=== PATIENT | female | born 2000 | race Caucasian/White ===

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

== ENCOUNTER 2023-12-18 07:34 | Day surgery (SDC) | payer BC ==
[~2023-12-18] VITALS: Ht 177.8 cm; Wt 76.8 kg
[2023-12-18] MEDS ORDERED: SUBVENITE (08:19)
[2023-12-18] MEDS ORDERED: propofoL 50 ML IV ONE ×2 (08:31→09:54)
[2023-12-18] MEDS ORDERED: Lactated Ringer's 1,000 ML IV ONE ×2 (08:31→08:35)
--- NOTE | 2023-12-18 08:33 | NUR ---
12/18/23 0833 Eneida Gomez FINISHING HER TRAINING BUT IN THE ROOM WITH HER. [facility]
[2023-12-18] MEDS ORDERED: Midazolam HCL 1 MG/ML 5MLVIAL ONE (09:16)
--- NOTE | 2023-12-18 11:11 | NUR ---
12/18/23 1110 Camille Boyd 1055: LABS DRAWN PER DR STOVER'S VERBAL ORDER
[2023-12-18 11:12] VITALS: BP 110/78
[2023-12-20 03:05] LABS: IMMUNOGLOBULIN A 115 mg/dL (68-408)
[2023-12-20 04:21] LABS: TISSUE TRANSGLUTAMINAS TTG,IGA <1.02 FLU (0.00-4.99)
== END 2023-12-18 11:00 | disposition home or self-care (01) ==
LOC: ORSCSDS 07:34
PROVIDERS: Internal Medicine Gastroenterology
PROC: 0DBK8ZX Excision of Ascending Colon, Via Natural or Artificial Opening Endoscopic, Diagnostic (ICD-10-PCS; principal; 2023-12-18 09:00)
PROC: 0DB98ZX Excision of Duodenum, Via Natural or Artificial Opening Endoscopic, Diagnostic (ICD-10-PCS; principal; 2023-12-18 09:00)
PROC: 0DB68ZX Excision of Stomach, Via Natural or Artificial Opening Endoscopic, Diagnostic (ICD-10-PCS; principal; 2023-12-18 09:00)
DX: R10.84 Generalized abdominal pain (principal); K63.5 Polyp of colon; R11.0 Nausea; R14.0 Abdominal distension (gaseous); K59.00 Constipation, unspecified; F31.9 Bipolar disorder, unspecified
CPT/HCPCS: 82784; 86364; 88305; 88342; J2250; J2704; J7120